=== PATIENT | male | born 1940 | race Caucasian/White ===

== ENCOUNTER 2017-05-30 07:30 | Day surgery (SDC) | payer OTHER, BC ==
[~2017-05-30] VITALS: Ht 182.9 cm; Wt 90.3 kg
[~2017-05-30 07:30] MED LIST: ADVIL200 MG PO; CIPRO500 MG PO; ELIQUIS5 MG PO; FLOMAX0.4 MG PO; LIPITOR20 MG PO; PERCOCET 5/31 TABLET PO; PERCOCET 7.51 TABLET PO; TORADOL10 MG PO; ZOFRAN4 MG PO
[2017-05-30 08:07] VITALS: BP 153/78
[2017-05-30 11:53] LABS: POINT-OF-CARE METER ID UU13113675
[2017-05-30 13:25] VITALS: BP 104/76
[2017-05-30 14:25] VITALS: BP 163/80
[2017-05-30 17:44] VITALS: BP 157/58
== END 2017-05-30 17:58 | disposition home or self-care (01) ==
LOC: SDC 07:30
PROVIDERS: Urology
PROC: 0TJ98ZZ Inspection of Ureter, Via Natural or Artificial Opening Endoscopic (ICD-10-PCS; principal; 2017-05-30)
DX: N13.2 Hydronephrosis with renal and ureteral calculous obstruction (principal); N13.1 Hydronephrosis with ureteral stricture, not elsewhere classified; N40.0 Benign prostatic hyperplasia without lower urinary tract symptoms; Z88.0 Allergy status to penicillin; E11.9 Type 2 diabetes mellitus without complications
CPT/HCPCS: 82948; C1758; C1876; J1170; J1580; J2405; J3010; J7050

== ENCOUNTER → 2017-05-31 | Outpatient (CLI) | payer OTHER, BC | END | disposition home or self-care (01) | LOC: NUC 10:12 | DX: N28.89 Other specified disorders of kidney and ureter (principal); R94.4 Abnormal results of kidney function studies | CPT/HCPCS: 78709; A9562 ==

== ENCOUNTER 2018-01-15 20:25 | Emergency (ER) | payer OTHER, BC ==
[~2018-01-15] VITALS: Ht 182.9 cm; Wt 88.6 kg
[2018-01-15 21:11] LABS: CHLORIDE 106 mEq/L (99-109); SODIUM 140 mEq/L (136-147)
[2018-01-15 21:13] LABS: GLUCOSE 185 mg/dL (70-99)
[2018-01-15 21:16] LABS: CREATININE 1.2 mg/dL (0.6-1.3); GFR ESTIMATE (CALCULATED) > 59 mL/min/ (58.99-99999)
[2018-01-15 21:17] LABS: APPEARANCE SL.HAZY ((CLEAR)); BILIRUBIN NEGATIVE; BLOOD LARGE; COLOR YELLOW ((YELLOW)); GLUCOSE (STRIP) NEGATIVE; KETONES 5; LEUKOCYTES TRACE; NITRITE NEGATIVE; PROTEIN (STRIP) 30; SPECIFIC GRAVITY 1.023 (1.000-1.030); UROBILINOGEN 0.2 MG/DL (0.2-1.0)
[2018-01-15 21:17] LABS: HEMATOCRIT 48.2 % (38.0-50.0); HEMOGLOBIN 17.5 G/DL (12.5-16.6); MCH 31.7 PG (29.0-34.0); MCHC 36.3 G/DL (30.0-36.0); MCV 87.3 FL (86-99); PLATELET COUNT 256 K/uL (156-360); RBC DIS.WIDTH-CV 12.6 % (11.8-14.6); RBC DIS.WIDTH-SD 40.4 % (39-53); RED BLOOD COUNT 5.52 M/uL (4.00-5.50); UREA NITROGEN (BUN) 32 mg/dL (9-23); WHITE BLOOD COUNT 9.8 K/uL (4.1-10.2)
[2018-01-15 21:30] LABS: BACTERIA RARE /HPF; EPITHELIAL CELLS RARE /HPF; MUCUS 2+ /LPF; RED BLOOD CELLS TNTC /HPF (0-5); UCUL ADDED? YES; WHITE BLOOD CELLS 15-20 /HPF (0-5)
[2018-01-16 00:13] VITALS: BP 173/80
== END 2018-01-16 00:14 | disposition home or self-care (01) ==
LOC: EME → EDBD 20:25 → EME 20:25
DX: N20.1 Calculus of ureter (principal); N21.0 Calculus in bladder; N40.0 Benign prostatic hyperplasia without lower urinary tract symptoms; E11.9 Type 2 diabetes mellitus without complications; Z87.442 Personal history of urinary calculi; Z85.9 Personal history of malignant neoplasm, unspecified; Z88.0 Allergy status to penicillin
CPT/HCPCS: 74176; 80048; 81003; 85027; 87086 GA; 99281; 99284

== ENCOUNTER 2018-02-06 07:25 | Day surgery (SDC) | payer OTHER, BC ==
[~2018-02-06] VITALS: Ht 182.9 cm; Wt 86.5 kg
[2018-02-06 07:49] VITALS: BP 172/83
[2018-02-06 11:50] VITALS: BP 170/77
[2018-02-06 12:55] VITALS: BP 187/79
== END 2018-02-06 12:55 | disposition home or self-care (01) ==
LOC: SDC 07:25
PROVIDERS: Urology
DX: N21.0 Calculus in bladder (principal); Z87.442 Personal history of urinary calculi; E11.9 Type 2 diabetes mellitus without complications; Z88.0 Allergy status to penicillin; Z88.1 Allergy status to other antibiotic agents
CPT/HCPCS: 74300; 74420; 82365 90; 93005; C1758; J0690; J1100; J2250; J2405; J3010